=== PATIENT | female | born 2000 | race Hispanic/Latino ===

== ENCOUNTER 2023-09-25 09:20 | Emergency (ER) | payer BC ==
[~2023-09-25] VITALS: Ht 162.6 cm; Wt 115.7 kg
[2023-09-25 09:50] VITALS: BP 126/79; PULSE 60; RESP 18; O2SAT 99
[2023-09-25 10:10] LABS: BASOPHILS # (AUTO) 0.04 K/uL (0.00-0.20); BASOPHILS % (AUTO) 0.5 % (0.0-5.0); EOSINOPHILS # (AUTO) 0.03 K/uL (0.00-0.70); EOSINOPHILS % (AUTO) 0.4 % (0.0-8.0); HEMATOCRIT 42.7 % (36-48); IMMATURE GRANULOCYTE ABSOLUTE 0.03 K/uL (0-1); LYMPHOCYTES # (AUTO) 1.5 K/uL (1.0-4.8); LYMPHOCYTES % (AUTO) 19.9 % (21.0-51.0); MEAN CORPUSCULAR HEMOGLOBIN 27.7 pg (27.0-33.0); MEAN CORPUSCULAR HGB CONC 33.5 g/dL (32.0-36.0); MEAN CORPUSCULAR VOLUME 82.6 fL (80-100); MONOCYTES # (AUTO) 0.5 K/uL (0.1-1.0); MONOCYTES % (AUTO) 6.2 % (3.0-13.0); NEUTROPHILS # (AUTO) 5.5 K/uL (1.8-7.7); NEUTROPHILS % (AUTO) 72.6 % (40.0-77.0); PLATELET COUNT (AUTO) 304 K/uL (130-400); RED BLOOD CELL COUNT(AUTO) 5.17 MIL/uL (4.00-5.50); RED CELL DISTRIBUTION WIDTH 13.2 % (11.0-15.5); WHITE BLOOD COUNT (AUTO) 7.6 K/uL (4.8-10.8)
[2023-09-25 10:11] LABS: APPEARANCE,URINE CLOUDY (CLEAR); BILIRUBIN,URINE NEGATIVE (NEGATIVE); COLOR,URINE LIGHT-YELLOW (YELLOW); GLUCOSE, URINE (UA) NEGATIVE (NEGATIVE); KETONES,URINE NEGATIVE (NEGATIVE); LEUKOCYTE ESTERASE ,URINE NEGATIVE Leu/uL (NEGATIVE); NITRATE,URINE NEGATIVE (NEGATIVE); OCCULT BLOOD,URINE NEGATIVE (NEGATIVE); PH,URINE 6.5 (5.0-8.0); PROTEIN,URINE NEGATIVE (NEGATIVE); UROBILINOGEN,URINE 0.2 mg/dL (0.2-1.0)
[2023-09-25] MEDS: FAMOTIDINE 20MG VIAL IV ONE (10:13)
[2023-09-25] MEDS: METOCLOPRAMIDE 10 MG/2 ML VIAL IVP ONE (10:13)
[2023-09-25] MEDS: MORPHINE 2 MG SYG IVP ONE (10:13)
[2023-09-25 10:17] LABS: ADD UA MICROSCOPIC YES; CREATININE 0.6 mg/dL (0.5-1.5)
[2023-09-25 10:18] LABS: HCG,QUALITATIVE URINE NEGATIVE (NEGATIVE)
[2023-09-25 10:21] LABS: ALBUMIN 3.5 g/dL (3.5-5.0); BACTERIA,URINE RARE /HPF (None Seen); BILIRUBIN,DIRECT 0.2 mg/dL (0.0-0.3); BILIRUBIN,TOTAL 0.7 mg/dL (0.2-1.0); MUCUS,URINE RARE LPF (None Seen); SQUAMOUS EPITHELIAL CELL,UR MANY /HPF (0-2); TOTAL PROTEIN, SERUM 7.3 g/dL (6.0-8.3)
[2023-09-25 11:38] LABS: COVID19 (SARS ANTIGEN RAPID) PRESUMPTIVE NEGATIVE (NEGATIVE); INFLUENZA TYPE A Negative For Type A (NEGATIVE); INFLUENZA TYPE B Negative For Type B (NEGATIVE)
[2023-09-25] MEDS ORDERED: METO-296 PO (12:25)
[2023-09-25] MEDS ORDERED: PANT40TA PO (12:25)
[2023-09-25] MEDS ORDERED: POLY17PO4 PO (12:25)
[2023-09-25] MEDS: ACETAMINOPHEN 500 MG TABLET PO ONE (12:38)
== END 2023-09-25 12:42 | disposition home or self-care (01) ==
LOC: EDH 09:20
DX: K80.50 Calculus of bile duct without cholangitis or cholecystitis without obstruction (principal); K80.20 Calculus of gallbladder without cholecystitis without obstruction; K29.70 Gastritis, unspecified, without bleeding; E66.01 Morbid (severe) obesity due to excess calories; Z68.41 Body mass index [BMI] 40.0-44.9, adult; Z20.822 Contact with and (suspected) exposure to COVID-19
CPT/HCPCS: 99284; 96374; 76705; 96375; 87426; 80076; 80048; 83690; 85025; 87088; 87804 ×2; 81001; 81025; 36415; J3490; J2270; J2765

== ENCOUNTER 2023-12-12 12:02 | Emergency (ER) | payer BC ==
[~2023-12-12] VITALS: Ht 162.6 cm; Wt 113.4 kg
[~2023-12-12 12:02] MED LIST: PRED5TAB PO
[2023-12-12 12:26] VITALS: BP 114/52; PULSE 65; RESP 14
[2023-12-12 13:14] LABS: BASOPHILS # (AUTO) 0.04 K/uL (0.00-0.20); BASOPHILS % (AUTO) 0.6 % (0.0-5.0); EOSINOPHILS # (AUTO) 0.05 K/uL (0.00-0.70); EOSINOPHILS % (AUTO) 0.7 % (0.0-8.0); HEMATOCRIT 40.4 % (36-48); IMMATURE GRANULOCYTE ABSOLUTE 0.02 K/uL (0-1); LYMPHOCYTES # (AUTO) 1.7 K/uL (1.0-4.8); LYMPHOCYTES % (AUTO) 23.5 % (21.0-51.0); MEAN CORPUSCULAR HEMOGLOBIN 28.3 pg (27.0-33.0); MEAN CORPUSCULAR HGB CONC 34.2 g/dL (32.0-36.0); MEAN CORPUSCULAR VOLUME 82.8 fL (80-100); MONOCYTES # (AUTO) 0.6 K/uL (0.1-1.0); NEUTROPHILS # (AUTO) 4.7 K/uL (1.8-7.7); NEUTROPHILS % (AUTO) 65.9 % (40.0-77.0); PLATELET COUNT (AUTO) 269 K/uL (130-400); RED BLOOD CELL COUNT(AUTO) 4.88 MIL/uL (4.00-5.50); WHITE BLOOD COUNT (AUTO) 7.1 K/uL (4.8-10.8)
[2023-12-12 13:25] LABS: CREATININE 0.7 mg/dL (0.5-1.0)
[2023-12-12 13:30] LABS: ALBUMIN 3.5 g/dL (3.5-5.0); BILIRUBIN,TOTAL 1.1 mg/dL (0.2-1.0); TOTAL PROTEIN, SERUM 7.3 g/dL (6.0-8.3)
[2023-12-12 14:09] LABS: APPEARANCE,URINE CLOUDY (CLEAR); BILIRUBIN,URINE 1 mg/dL (NEGATIVE); COLOR,URINE DARK-YELLOW (YELLOW); GLUCOSE, URINE (UA) NEGATIVE (NEGATIVE); KETONES,URINE NEGATIVE (NEGATIVE); LEUKOCYTE ESTERASE ,URINE 75 Leu/uL (NEGATIVE); NITRATE,URINE NEGATIVE (NEGATIVE); OCCULT BLOOD,URINE MODERATE (NEGATIVE); PH,URINE 6.5 (5.0-8.0); PROTEIN,URINE 50 mg/dL (NEGATIVE); UROBILINOGEN,URINE 12 mg/dL (0.2-1.0)
[2023-12-12 14:14] LABS: HCG,QUALITATIVE URINE NEGATIVE (NEGATIVE)
[2023-12-12 14:21] LABS: BACTERIA,URINE Moderate /HPF (None Seen)
[2023-12-12] MEDS ORDERED: KETO10TA2 PO (15:42)
[2023-12-12] MEDS ORDERED: ONDA22I PO (15:42)
[2023-12-12] MEDS: CEFTRIAXONE 1G VIAL IM ONE (16:01)
[2023-12-12] MEDS: KETOROLAC 30MG VIAL (30MG/ML) IM ONE (16:09)
== END 2023-12-12 16:13 | disposition home or self-care (01) ==
LOC: EDH 12:02
DX: R79.89 Other specified abnormal findings of blood chemistry (principal); Z79.899 Other long term (current) drug therapy; Z90.89 Acquired absence of other organs; Z98.890 Other specified postprocedural states; Z88.8 Allergy status to other drugs, medicaments and biological substances
CPT/HCPCS: 99284; 74176; 80053; 84703; 83690; 85025; 87088; 81001 ×2; 81025; 36415; 96372 ×2; J0696; J1885

== ENCOUNTER 2024-01-27 07:13 | Emergency (ER) | payer BC ==
[~2024-01-27] VITALS: Ht 162.6 cm; Wt 111.1 kg
[~2024-01-27 07:13] MED LIST changes: +KETO10TA2 PO; +ONDA22I PO
[2024-01-27 07:32] LABS: APPEARANCE,URINE CLOUDY (CLEAR); BILIRUBIN,URINE NEGATIVE (NEGATIVE); COLOR,URINE LIGHT-YELLOW (YELLOW); GLUCOSE, URINE (UA) NEGATIVE (NEGATIVE); KETONES,URINE NEGATIVE (NEGATIVE); LEUKOCYTE ESTERASE ,URINE 250 Leu/uL (NEGATIVE); NITRATE,URINE NEGATIVE (NEGATIVE); OCCULT BLOOD,URINE NEGATIVE (NEGATIVE); PROTEIN,URINE NEGATIVE (NEGATIVE)
[2024-01-27 07:35] LABS: ADD UA MICROSCOPIC YES
[2024-01-27 07:37] LABS: HCG,QUALITATIVE URINE NEGATIVE (NEGATIVE)
[2024-01-27 07:38] LABS: BACTERIA,URINE FEW /HPF (None Seen); MUCUS,URINE RARE LPF (None Seen); SQUAMOUS EPITHELIAL CELL,UR MANY /HPF (0-2)
[2024-01-27 07:58] LABS: BASOPHILS # (AUTO) 0.04 K/uL (0.00-0.20); BASOPHILS % (AUTO) 0.6 % (0.0-5.0); EOSINOPHILS # (AUTO) 0.07 K/uL (0.00-0.70); HEMATOCRIT 40.1 % (36-48); IMMATURE GRANULOCYTE ABSOLUTE 0.01 K/uL (0-1); LYMPHOCYTES # (AUTO) 2.8 K/uL (1.0-4.8); LYMPHOCYTES % (AUTO) 40.9 % (21.0-51.0); MEAN CORPUSCULAR HEMOGLOBIN 28.2 pg (27.0-33.0); MEAN CORPUSCULAR HGB CONC 33.9 g/dL (32.0-36.0); MEAN CORPUSCULAR VOLUME 83.2 fL (80-100); MONOCYTES # (AUTO) 0.6 K/uL (0.1-1.0); MONOCYTES % (AUTO) 8.3 % (3.0-13.0); NEUTROPHILS # (AUTO) 3.3 K/uL (1.8-7.7); NEUTROPHILS % (AUTO) 49.1 % (40.0-77.0); PLATELET COUNT (AUTO) 276 K/uL (130-400); RED BLOOD CELL COUNT(AUTO) 4.82 MIL/uL (4.00-5.50); RED CELL DISTRIBUTION WIDTH 13.1 % (11.0-15.5); WHITE BLOOD COUNT (AUTO) 6.8 K/uL (4.8-10.8)
[2024-01-27 08:15] LABS: ALBUMIN 3.4 g/dL (3.5-5.0); BILIRUBIN,TOTAL 0.6 mg/dL (0.2-1.0); CREATININE 0.7 mg/dL (0.5-1.0); POTASSIUM 4.4 mmol/L (3.5-5.1)
[2024-01-27] MEDS: BISACODYL 10 MG SUPP.RECT RC ONE (08:41)
[2024-01-27] MEDS: ONDANSETRON 4MG INJ IVP ONE (10:03)
[2024-01-27] MEDS: PANTOPRAZOLE 40 MG/VIAL IVP ONE (10:03)
[2024-01-27] MEDS: 0.9%NACL 1000ML 1,000 ML IV ONE (10:03)
[2024-01-27] MEDS: KETOROLAC 30MG VIAL (30MG/ML) IVP ONE (10:04)
[2024-01-27] MEDS: DICYCLOMINE 20MG (10MG/ML) AMP IM ONE (10:04)
[2024-01-27] MEDS: MORPHINE 2 MG SYG IVP ONE (10:05)
[2024-01-27] MEDS: MAG/ALUM/SIMETH 30 ML UDCUP PO ONE (11:52)
[2024-01-27] MEDS: SUCRALFATE 1 GM/10 ML PO SCH (11:52)
[2024-01-27] MEDS ORDERED: PANT40TA55 PO (12:36)
[2024-01-27] MEDS ORDERED: SUCR1TAB28 PO (12:36)
[2024-01-27] MEDS ORDERED: ONDA-243 SL (12:36)
[2024-01-27 13:11] VITALS: BP 125/65; PULSE 58; RESP 17; O2SAT 97
== END 2024-01-27 13:13 | disposition home or self-care (01) ==
LOC: EDH 07:13
DX: E25.0 Congenital adrenogenital disorders associated with enzyme deficiency (principal); E66.01 Morbid (severe) obesity due to excess calories; Z68.41 Body mass index [BMI] 40.0-44.9, adult; Z79.899 Other long term (current) drug therapy; Z90.89 Acquired absence of other organs; Z98.890 Other specified postprocedural states; Z88.8 Allergy status to other drugs, medicaments and biological substances
CPT/HCPCS: 99284; 96374; 96375; 76705; 96361; 80053; 83690; 85025; 87086; 81001; 81025; 36415; 96372; J2270; J7030; J2405; J1885; C9113; J0500